=== PATIENT | male | born 1945 | race Caucasian/White ===

== ENCOUNTER 2021-06-22 16:33 | Emergency (ER) | payer OTHER, MEDICARE ==
[2021-06-22] MEDS ORDERED: hydrALAZINE 20 MG/ML VIAL SLOW IVP PRN (17:23)
[2021-06-22] MEDS ORDERED: Ondansetron PF 4 MG/2 ML Vial IVP PRN (17:23)
[2021-06-22] MEDS ORDERED: Promethazine HCl 25 MG/ML VIAL IM PRN (17:23)
[2021-06-22] MEDS ORDERED: Acetaminophen 325 MG TAB PO SCH (17:30)
[2021-06-22 17:58] LABS: Hemoglobin 9.7 g/dL (14.0-18.0); Mean Corpuscular Hemoglobin 40.4 pg (27.0-31.0); Mean Platelet Volume 6.6 fL (7.4-10.4); Platelet Count 123 thou/uL (130-400); RBC Distribution Width 12.3 % (11.5-14.5); White Blood Cell (WBC) Count 4.2 thou/uL (4.8-10.8)
[2021-06-22 18:08] LABS: #Eosinphils 0.3 thou/uL (0.0-0.7); #Lymphocytes 0.6 thou/uL (1.20-3.40); #Monocytes 0.3 thou/uL (0.11-0.59); %Basophils 0.8 % (0.0-1.0); %Eosinophils 7.3 % (0.0-10.0); %Lymphocytes 13.6 % (21.0-51.0); %Monocytes 6.2 % (0.0-10.0)
[2021-06-22 18:18] LABS: ALT (SGPT) 28 U/L (8-55); AST (SGOT) 25 U/L (5-34); Alkaline Phosphatase 133 U/L (40-110); Anion Gap 12 mmol/L (10-20); BUN (Urea Nitrogen) 30 mg/dL (8.4-25.7); Bilirubin, Total 0.5 mg/dL (0.2-1.2); Calc. Creatinine Clearance 0 mL/min (70-130); Calcium 8.4 mg/dL (7.8-10.44); Carbon Dioxide 23 mmol/L (23-31); Chloride 111 mmol/L (98-107); Glucose 137 mg/dL (83-110); Potassium 4.3 mmol/L (3.5-5.1); Sodium 142 mmol/L (136-145)
[2021-06-22 18:21] LABS: MDiff Complete? YES; Macrocytosis SLIGHT = 6-15 cells (100X) (0-5/hpf); Platelet Morphology Comment Appears Decreased; Polychromasia SLIGHT = 2-3 cells (100X) (0-2/hpf)
[2021-06-22] MEDS ORDERED: Morphine 4 MG/ML VIAL SLOW IVP PRN (18:22)
[2021-06-22] MEDS ORDERED: Nitroglycerin 2% Ointment 1 INCH/1 GM Packet ONE (18:36)
[2021-06-22] MEDS ORDERED: CEFAZOLIN 1 GM VIAL ONE (19:50)
[2021-06-22] MEDS ORDERED: Boostrix 0.5 ML (Tdap) VIAL ONE (19:50)
[2021-06-22 20:08] LABS: SARS-CoV-2 NAA Rapid Test Not Detected (NotDetected)
[2021-06-22] MEDS ORDERED: Senokot S 8.6-50 MG TAB PO SCH (21:00)
[2021-06-22] MEDS ORDERED: Famotidine 20 MG TAB PO SCH (21:00)
[2021-06-23] MEDS ORDERED: Polyethylene Glycol 3350 17 GM Packet PO SCH (09:00)
== END 2021-06-22 20:42 | disposition short-term general hospital (02) ==
LOC: ERS 16:33
DX: S61.411A Laceration without foreign body of right hand, initial encounter (principal); S00.83XA Contusion of other part of head, initial encounter; W01.0XXA Fall on same level from slipping, tripping and stumbling without subsequent striking against object, initial encounter; Z20.822 Contact with and (suspected) exposure to COVID-19
CPT/HCPCS: 70450; 73070; 73110; 73130; 73564; 80053; 83880; 84484; 85025; 90471; 90715; 93005; 96365; 99285; U0002; 36415; J0690

== ENCOUNTER 2021-07-06 12:52 | Emergency (ER) | payer MEDICARE, OTHER | END 2021-07-06 13:30 | disposition home or self-care (01) | LOC: ERS 12:52 | DX: S61.411D Laceration without foreign body of right hand, subsequent encounter (principal); E11.9 Type 2 diabetes mellitus without complications; Z79.84 Long term (current) use of oral hypoglycemic drugs; Z79.899 Other long term (current) drug therapy ==